=== PATIENT | female | born 1945 | race Caucasian/White ===

== ENCOUNTER 2021-11-19 09:44 | Emergency (ER) | payer MEDICARE, OTHER ==
[2021-11-19] MEDS ORDERED: Acetaminophen 500 MG TAB ONE (10:44)
== END 2021-11-19 12:58 | disposition home or self-care (01) ==
LOC: CSHERS 09:44
DX: U07.1 COVID-19 (principal); E11.9 Type 2 diabetes mellitus without complications; Z79.4 Long term (current) use of insulin; Z79.82 Long term (current) use of aspirin; Z79.899 Other long term (current) drug therapy
CPT/HCPCS: 36416; 99283

== ENCOUNTER 2022-04-24 11:21 | Emergency (ER) | payer MEDICARE, OTHER | END 2022-04-24 15:03 | disposition home or self-care (01) | LOC: CSHERS 11:21 | DX: M25.562 Pain in left knee (principal); I10 Essential (primary) hypertension; E11.9 Type 2 diabetes mellitus without complications; M79.605 Pain in left leg | CPT/HCPCS: 71045; 85379; 93005 ==

== ENCOUNTER 2022-10-27 09:06 | Emergency (ER) | payer MEDICARE, OTHER | END 2022-10-27 10:45 | disposition home or self-care (01) | LOC: CSHERS 09:06 | DX: J06.9 Acute upper respiratory infection, unspecified (principal); E11.9 Type 2 diabetes mellitus without complications; I10 Essential (primary) hypertension | CPT/HCPCS: 71045 ==

== ENCOUNTER 2023-07-28 08:37 | Outpatient (CLI) | payer MEDICARE, OTHER | END 2023-07-28 08:38 | disposition home or self-care (01) | LOC: CSHRAD 08:37 | PROVIDERS: ATTEND Internal Medicine Rheumatology | DX: M46.1 Sacroiliitis, not elsewhere classified (principal); M47.816 Spondylosis without myelopathy or radiculopathy, lumbar region | CPT/HCPCS: 72110 ==

== ENCOUNTER 2023-09-30 09:24 | Outpatient (CLI) | payer MEDICARE, OTHER | END 2023-09-30 09:25 | disposition home or self-care (01) | LOC: CSHCT 09:24 | PROVIDERS: ATTEND Family Medicine | DX: M47.816 Spondylosis without myelopathy or radiculopathy, lumbar region (principal) | CPT/HCPCS: 72131 ==

== ENCOUNTER 2024-05-09 13:22 | Outpatient (CLI) | payer MEDICARE, OTHER | END 2024-05-09 13:23 | disposition home or self-care (01) | LOC: CSHMAMMO 13:22 | PROVIDERS: ATTEND Internal Medicine Endocrinology, Diabetes & Metabolism | DX: M85.852 Other specified disorders of bone density and structure, left thigh (principal) | CPT/HCPCS: 77080 ==